=== PATIENT | female | born 1980 | race Caucasian/White ===

== ENCOUNTER → 2019-10-10 | Outpatient (REF) | payer OTHER | LOC: M LAB LCGH 11:33 | PROVIDERS: ATTEND Obstetrics & Gynecology | DX: Z12.4 Encounter for screening for malignant neoplasm of cervix (principal) | CPT/HCPCS: 87624; G0123 ==

== ENCOUNTER → 2019-11-02 | Outpatient (REF) | payer OTHER | LOC: M LAB LCGH 12:29 | PROVIDERS: ATTEND Obstetrics & Gynecology | DX: N92.6 Irregular menstruation, unspecified (principal) ==

== ENCOUNTER → 2024-10-11 | Outpatient (CLI) | payer OTHER ==
[2024-10-11 12:44] LABS: BASO # 0.1 10^3/uL (0.0-0.2); BASO % 2.4 % (0.0-1.0); EOS # 0.1 10^3/uL (0.0-0.5); EOS % 2.6 % (0.0-3.0); HEMATOCRIT 26.6 % (36.0-47.0); HEMOGLOBIN 7.4 g/dl (12.0-15.5); LYMPH # 1.2 10^3/uL (1.5-5.0); LYMPH % 30.7 % (24.0-44.0); MEAN CORPUSCULAR HEMOGLOBIN 18.4 pg (27.0-33.0); MEAN CORPUSCULAR HGB CONC 27.8 g/dl (32.0-36.5); MEAN CORPUSCULAR VOLUME 66.2 fl (80.0-96.0); MONO # 0.4 10^3/uL (0.0-0.8); PLATELET COUNT, AUTOMATED 364 10^3/uL (150-450); RED BLOOD COUNT 4.02 10^6/uL (4.00-5.40); WHITE BLOOD COUNT 3.8 10^3/uL (4.0-10.0)
== END ==
LOC: M PLALAB 08:03
PROVIDERS: ATTEND Internal Medicine Hematology
DX: D50.9 Iron deficiency anemia, unspecified (principal)

== ENCOUNTER → 2024-11-06 | Outpatient (CLI) | payer OTHER ==
[~2024-11-06] MED LIST: ISOVUE-370 76% 100ML VIAL ONE
== END ==
LOC: M PLAIMG 08:27
PROVIDERS: ATTEND Internal Medicine Hematology
DX: D50.9 Iron deficiency anemia, unspecified (principal)
CPT/HCPCS: 74177; Q9967

== ENCOUNTER 2024-11-08 13:26 | Outpatient (CLI) | payer OTHER ==
[~2024-11-08] VITALS: Ht 165.1 cm; Wt 62.2 kg
[~2024-11-08 13:26] MED LIST changes: +ALBUTEROL SULFATE 2.5MG/0.5ML INH NEB SOLN INH PRN; +EPINEPHrine INJ 1 MG/ML 1ML AMP IM PRN; -ISOVUE-370 76% 100ML VIAL ONE; +diphenhydrAMINE 50MG/ML VIAL IV PRN; +methylPREDNISolone 125MG 2ML VIAL IV PRN
[2024-11-08 14:00] VITALS: BP 111/60; O2SAT 100
[2024-11-08] MEDS: IRON SUCROSE 300 MG in NS 250 ML IV ONE (14:24)
[2024-11-08 16:20] VITALS: BP 104/60; O2SAT 99
== END 2024-11-08 16:25 ==
LOC: M INFU 13:26
PROVIDERS: ATTEND Internal Medicine Hematology
DX: D50.9 Iron deficiency anemia, unspecified (principal); Z91.09 Other allergy status, other than to drugs and biological substances
CPT/HCPCS: 96365; 96366; J1756

== ENCOUNTER 2024-11-15 14:20 | Outpatient (CLI) | payer OTHER ==
[~2024-11-15] VITALS: Ht 165.1 cm; Wt 62.2 kg
[2024-11-15 14:20] VITALS: BP 102/58; O2SAT 100
[2024-11-15] MEDS: IRON SUCROSE 300 MG in NS 250 ML OVER 90 MIN. IV ONE (14:26)
[2024-11-15 16:05] VITALS: BP 100/63; O2SAT 100
== END 2024-11-15 16:10 | disposition home or self-care (01) ==
LOC: M INFU 14:20
PROVIDERS: ATTEND Internal Medicine Hematology
DX: D50.9 Iron deficiency anemia, unspecified (principal); Z91.09 Other allergy status, other than to drugs and biological substances
CPT/HCPCS: 96365; 96366; J1756

== ENCOUNTER → 2024-11-22 | Outpatient (CLI) | payer OTHER ==
[~2024-11-22] VITALS: Ht 165.1 cm; Wt 62.3 kg
[2024-11-22 14:00] VITALS: BP 99/72; O2SAT 99
[2024-11-22] MEDS: IRON SUCROSE 300 MG in NS 250 ML OVER 90 MIN. IV ONE (14:05)
[2024-11-22 15:50] VITALS: BP 98/52; O2SAT 99
== END ==
LOC: M INFU 13:54
PROVIDERS: ATTEND Internal Medicine Hematology
DX: D50.9 Iron deficiency anemia, unspecified (principal); Z91.09 Other allergy status, other than to drugs and biological substances
CPT/HCPCS: 96365; 96366; J1756

== ENCOUNTER 2024-11-29 14:00 | Outpatient (CLI) | payer OTHER ==
[~2024-11-29] VITALS: Ht 149.9 cm; Wt 49.1 kg
[2024-11-29] MEDS: IRON SUCROSE 300 MG in NS 250 ML IV ONE (14:49)
[2024-11-29 16:30] VITALS: BP 102/63; O2SAT 100
[2024-12-01] MEDS ORDERED: LEXA5TAB13 PO (11:20)
== END 2024-11-29 16:30 ==
LOC: M INFU 14:00
PROVIDERS: ATTEND Internal Medicine Hematology
DX: D50.9 Iron deficiency anemia, unspecified (principal); Z91.09 Other allergy status, other than to drugs and biological substances
CPT/HCPCS: 96365; 96366; J1756

== ENCOUNTER 2024-12-15 08:58 | Day surgery (SDC) | payer OTHER ==
[~2024-12-15] VITALS: Ht 165.1 cm; Wt 60.8 kg
[~2024-12-15 08:58] MED LIST changes: -ALBUTEROL SULFATE 2.5MG/0.5ML INH NEB SOLN INH PRN; -EPINEPHrine INJ 1 MG/ML 1ML AMP IM PRN; +LEXA5TAB13 PO; -diphenhydrAMINE 50MG/ML VIAL IV PRN; -methylPREDNISolone 125MG 2ML VIAL IV PRN
[2024-12-15] MEDS ORDERED: fentaNYL 100 MCG/2 ML INJECTION As Ordered ONE (08:59)
[2024-12-15] MEDS ORDERED: LIDOCAINE 2% 100MG/5ML SDV (FOR ANES.) As Ordered ONE (08:59)
[2024-12-15] MEDS ORDERED: propofoL 200 MG/20 ML VIAL As Ordered ONE (08:59)
[2024-12-15] MEDS ORDERED: GLYCOPYRROLATE INJ 0.2 MG/ML 2 ML VIAL As Ordered ONE (10:06)
[2024-12-15 10:24] VITALS: TEMP 97.2
[2024-12-15 10:45] VITALS: BP 111/68; O2SAT 100
== END 2024-12-15 10:56 | disposition home or self-care (01) ==
LOC: M OPP 08:58
PROVIDERS: ATTEND Surgery
DX: D50.9 Iron deficiency anemia, unspecified (principal); R63.4 Abnormal weight loss; K31.89 Other diseases of stomach and duodenum; Z91.048 Other nonmedicinal substance allergy status; Z79.899 Other long term (current) drug therapy
CPT/HCPCS: 43239; 45378; 88305; J1596; J3010